=== PATIENT | female | born 1960 | race African-American/Black ===

== ENCOUNTER 2018-10-19 10:19 | Emergency (ER) | payer OTHER ==
[~2018-10-19] VITALS: Ht 177.8 cm; Wt 158.5 kg
--- OUTSIDE RECORDS SUMMARY | 2018-10-19 10:22 | XMS REPORT ---
Author [facility] Address Unknown Phone Unavailable Care Team Providers Care Human Resources Hr Representative Name Role Phone Unavailable Unavailable Payers Payer Name Policy Type Policy Number Effective Date Expiration Date Problems This patient has no known problems. Allergies, Adverse Reactions, Alerts Allergy Name Allergy Type Status Severity Reaction(s) Onset Date Inactive Date Treating Clinician Comments No Known Allergies DA Active U 2016-05-15 00:00:00 Medications This patient has no known medications.
[2018-10-19] MEDS ORDERED: CYMBALTA20 MG PO (10:38)
[2018-10-19] MEDS ORDERED: lidocaine patch (10:38)
[2018-10-19] MEDS ORDERED: IBUPROFEN200 MG PO (10:38)
[2018-10-19] MEDS ORDERED: ALBUTEROL/IPRATROPIUM 3 ML NEB NEB ONE (11:15)
--- NOTE | 2018-10-19 12:55 | Diagnostic Imaging Report ---
EXAMINATION: PA and lateral views of the chest. COMPARISON: None CLINICAL HISTORY: Weakness, coughing, shortness of breath DISCUSSION: Lungs are well-inflated. No focal consolidation, pleural effusion, or pneumothorax. Symmetric nodular opacities project over the lung bases compatible with nipple shadows. Cardiomediastinal contour and pulmonary vasculature are within normal limits. No acute osseous abnormality. IMPRESSION: No acute cardiopulmonary abnormalities. Signed by: Dr. Robson Pate M.D. on 10/19/2018 12:51 PM
[2018-10-19] MEDS ORDERED: PROAIR HFA INH8.5 GM INH (13:14)
[2018-10-19] MEDS ORDERED: PREDNISONE 20 MG TAB PO ONE (13:15)
[2018-10-19] MEDS ORDERED: PREDNISONE20 MG PO (13:16)
[2018-10-19] MEDS ORDERED: FLUTICASONE PRO16 GM (13:18)
[2018-10-19 13:35] VITALS: BP 140/76
== END 2018-10-19 13:36 | disposition home or self-care (01) ==
LOC: FSED 10:19
DX: J98.01 Acute bronchospasm (principal); E66.01 Morbid (severe) obesity due to excess calories; Z68.43 Body mass index [BMI] 50.0-59.9, adult; R06.00 Dyspnea, unspecified; M54.9 Dorsalgia, unspecified; Z79.899 Other long term (current) drug therapy
CPT/HCPCS: 71046; 80053; 81003; 82553; 83880; 84484; 85025; 85379; 93005; 99284; J7512